=== PATIENT | female | born 1995 | race American Indian/Alaskan Native ===

== ENCOUNTER 2020-09-30 06:12 | Emergency (ER) | payer MEDICAID ==
--- NOTE | 2020-09-30 18:51 | PCM.SN.2 ---
- Free Text/Narrative Note: [employer] not working at time of visit earlier this AM see separate Word Document of visit pt left AMA ASSESS: recurrent RUQ pain, likely biliary colic PLAN: left AMA
== END 2020-09-30 07:10 | disposition left against medical advice (07) ==
LOC: FB.ED 06:12
DX: R10.11 Right upper quadrant pain (principal); Z86.16 Personal history of COVID-19
CPT/HCPCS: 99283

== ENCOUNTER 2021-02-19 13:41 | Emergency (ER) | payer MEDICAID ==
[2021-02-19] MEDS ORDERED: Morphine 4 MG/ML VIAL IVPUSH STA (13:44)
[2021-02-19] MEDS ORDERED: Ondansetron 4 MG/2 ML SDV IVPUSH STA (13:45)
[2021-02-19] MEDS ORDERED: HYDROmorphone 2 MG/ML SDV IVPUSH STA (13:45)
[2021-02-19] MEDS ORDERED: Iopamidol 755 Mg/ML 100 ML Bottle IV ONE (14:09)
[2021-02-19] MEDS ORDERED: LORazepam 2 MG/ML SDV IVPUSH STA (14:11)
[2021-02-19] MEDS ORDERED: Sodium Chloride 0.9% 1,000 ML IV SCH (14:30)
[2021-02-19] MEDS ORDERED: HYDROmorphone 2 MG/ML SDV IVPUSH ONE (15:26)
[2021-02-19] MEDS ORDERED: Piperacillin/Tazobactam 4.5 GM in Sodium Chloride 0.9% 100 ML IV STA (15:30)
--- NOTE | 2021-02-19 15:53 | CT ---
INDICATION: Severe right upper quadrant pain. CT CHEST, ABDOMEN AND PELVIS WITH CONTRAST: Spiral 3.75 mm axial sections were obtained through the chest, abdomen and pelvis with 100 mL [id number] at 2 mL/second, with sagittal, coronal and axial reconstructions in the chest and sagittal and coronal reconstructions in the abdomen, 02/19/21 - no comparisons. TOTAL EXAM DLP: 1227.38 mGy/cm. CT CHEST WITH CONTRAST: Examination of the chest with contrast - no comparisons. No mediastinal mass or significant mediastinal lymphadenopathy was noted. Heart appeared normal in size. An active infiltrate or effusion was not identified. A Ghon complex was noted on the left, compatible with previous granulomatous disease with calcification in a peripheral-perihilar posterior left lower lobe nodule and in adjacent hilar lymph nodes. No nodular masses were seen. No pneumothorax was seen. There is a minimal dextroconvex scoliosis at the upper middle thoracic spine. Vertebral body and disc heights were fairly well maintained with no significant- appearing degenerative changes. IMPRESSION: 1. Essentially normal CT chest with minimal scoliosis, with IV contrast. 2. Findings compatible with previous granulomatous disease. CT ABDOMEN AND PELVIS: Examination of the abdomen and pelvis with contrast was obtained and revealed a massively enlarged gallbladder, measuring approximately 17 cm in maximum diameter, with the smallest single line diameter of the gallbladder-AP diameter approximately 11 cm. While no definite calculi were seen, there is some suggestion of increased density material within the gallbladder near the neck of the gallbladder with one apparent gas bubble, which suggests the possibility of gas-forming organism infection in the gallbladder. However, the usual pericholecystic fluid and fat stranding around the gallbladder is not visualized, raising question of a very acute process. This should be correlated clinically. Additionally, there is noted dilatation of the proximal and distal common bile duct into the head of the pancreas. At the head of the pancreas, it measured approximately 6.4 mm, which is significantly enlarged in this age group. No definite etiology was noted for this dilatation. It should be correlated clinically. Additional examination, such as MRI-MRCP, may be warranted. Also, gallbladder ultrasound for the gallbladder findings may certainly be warranted for confirmation. The liver, adrenal glands, kidneys, spleen pancreas and retroperitoneum appeared essentially unremarkable with some minimal retroperitoneal lymphadenopathy, which is nonspecific. The appendix appeared normal, visualized on axial images 75 to 85, measuring approximately 6.5 mm maximally. No evidence of free air or bowel obstruction was identified. No ventral or inguinal hernia was seen. Urinary bladder was unremarkable. Ovaries showed evidence of follicles with follicular cyst changes on the left. No additional organomegaly, mass lesions or free fluid collections were identified in the abdomen or pelvis. Hypertrophic degenerative changes and disc disease are noted at L5-S1 and to a moderate extent also at L4-5 with posterior hypertrophic spurring at those levels off vertebral bodies. IMPRESSION: 1. Marked enlargement of the gallbladder with findings within the gallbladder raising question of very acute cholecystitis. This should be correlated clinically-gallbladder ultrasound recommended for confirmation. 2. Dilated common bile duct, etiology indeterminate-MRI may be helpful for further evaluation, as well as right upper quadrant ultrasound. 3. Degenerative hypertrophic changes and disc disease at L4 through S1. Report was called to Dr. Plasencia at 1520 hours, 02/19/21. [facility]
[2021-02-19] MEDS ORDERED: Ketorolac 30 MG/ML SDV IVPUSH STA (16:18)
--- NOTE | 2021-02-19 16:18 | EDM.PDOC ---
ED HPI GENERAL MEDICAL PROBLEM - General Chief Complaint: Abdominal Pain Stated Complaint: ABD PAIN Time Seen by Provider: 02/19/21 13:45 Source of Information: Reports: Patient, Family History Limitations: Reports: No Limitations - History of Present Illness INITIAL COMMENTS - FREE TEXT/NARRATIVE: Patient is a 25 YO F who presented to the ED because of sudden onset of severe R UQ and Epigastric pain at about 11:30 am. The pain is sharp and stabbing, 10/10 with associated nausea and vomiting x1. She has some chills but no fever. No changes in bowel movement of urinary symptoms. Right Upper Abdomen Pain Score (Numeric/FACES): 10 - Related Data Allergies Allergy/AdvReac Type Severity Reaction Status Date / Time No Known Allergies Allergy Verified 04/05/18 14:38 Home Meds: Home Meds Vits #93/Iron Fum/FA [ Formula Tablet] 1 tab PO DAILY 04/05/18 [History] Past Medical History - Past Health History Medical/Surgical History: Denies Medical/Surgical History - Infectious Disease History Infectious Disease History: Reports: None - Past Surgical History Musculoskeletal Surgical History: Reports: Other (See Below) Other Musculoskeletal Surgeries/Procedures:: R MENISCUS REPAIR Social & Family History - Family History Family Medical History: No Pertinent Family History - Caffeine Use Caffeine Use: Reports: Coffee, Soda Other Caffeine Use: 1 CAN QOD ED ROS GENERAL - Review of Systems Review Of Systems: See Below Constitutional: Reports: Chills HEENT: Reports: No Symptoms Respiratory: Reports: No Symptoms Cardiovascular: Reports: No Symptoms Endocrine: Reports: No Symptoms GI/Abdominal: Reports: Abdominal Pain, Nausea, Vomiting : Reports: No Symptoms Musculoskeletal: Reports: No Symptoms Skin: Reports: No Symptoms Neurological: Reports: No Symptoms Psychiatric: Reports: No Symptoms ED EXAM, GI/ABD - Physical Exam Exam: See Below Exam Limited By: No Limitations General Appearance: Alert, No Apparent Distress Ears: Normal External Exam, Normal Canal, Hearing Grossly Normal Nose: Normal Inspection, Normal Mucosa, No Blood Throat/Mouth: Normal Inspection, Normal Lips, Normal Teeth Head: Atraumatic, Normocephalic Neck: Normal Inspection, Supple, Non-Tender, Full Range of Motion Respiratory/Chest: No Respiratory Distress, Lungs Clear, Normal Breath Sounds, No Accessory Muscle Use, Chest Non-Tender Cardiovascular: Normal Peripheral Pulses, Regular Rate, Rhythm, No Edema, No Gallop, No JVD, No Murmur GI/Abdominal Exam: Normal Bowel Sounds, Soft, Other (RUQ and Epigastric ten derness) Back Exam: Normal Inspection, Full Range of Motion Extremities: Normal Inspection, Normal Range of Motion, Non-Tender, No Pedal Edema, Normal Capillary Refill Neurological: Alert, Oriented, CN II-XII Intact, Normal Cognition, Normal Gait, Normal Reflexes, No Motor/Sensory Deficits Psychiatric: Normal Affect Course - Vital Signs Text/Narrative:: Lab/Abd and Pelvis CT was reviewed and discussed with patient and her mom NS 1 L bolus Zofran 4 mg IV x1 Morphine 4 mg IV x1 Dilaudid 2 mg IV x1 Zosyn 4.75 gm IV x1 Toradol 30 mg iv x1 Vistaril 100 mg IM x1` Surgery consult with Dr Santamaria at [facility] who want patient to be transferred to [facility] Last Recorded V/S: Last Vital Signs Temp 36.4 C 02/19/21 13:45 Pulse 79 02/19/21 15:30 Resp 20 02/19/21 15:30 BP 122/88 02/19/21 15:30 Pulse Ox 99 02/19/21 15:30 - Orders/Labs/Meds Orders: Active Orders 24 hr Category Date Time Status Chest Pain Instruction [OM.PC] Stat Oth 02/19/21 13:48 Ordered EKG 12 Lead [EK] Routine Ther 02/19/21 13:40 Ordered Labs: Laboratory Tests 02/19/21 02/19/21 02/19/21 Range/Units 13:55 13:55 13:55 WBC 8.6 (3.0-10.3) x10-3/uL RBC 4.51 (3.60-5.20) x10(6)uL Hgb 12.8 (11.4-15.5) g/dL Hct 38.7 (34.2-48.2) % MCV 85.8 (76.7-100.5) fL MCH 28.4 (23.9-33.9) pg MCHC 33.1 (31.9-34.8) g/dL RDW 13.2 (12.3-16.5) % Plt Count 340 (151-488) x10(3)uL MPV 7.8 (7.1-12.4) fL Neut % (Auto) 68.5 (30.8-76.2) % Lymph % (Auto) 23.2 (18.4-52.1) % [place] % (Auto) 7.3 (4.4-15.7) % Eos % (Auto) 0.7 (0.6-8.1) % Baso % (Auto) 0.3 (0.2-1.5) % Neut # (Auto) 5.9 (1.5-6.3) x10-3/uL Lymph # (Auto) 2.0 (1.0-4.4) x10-3/uL [place] # (Auto) 0.6 (0.3-1.0) x10-3/uL Eos # (Auto) 0.1 (0.0-0.8) x10-3/uL Baso # (Auto) 0.0 (0.0-0.1) x10-3/uL Sodium 139 (135-145) mmol/L Potassium 3.6 (3.5-5.3) mmol/L Chloride 105 (100-110) mmol/L Carbon Dioxide 25 (21-32) mmol/L BUN 12 (7-18) mg/dL Creatinine 1.1 H (0.55-1.02) mg/dL Est Cr Clr Drug Dosing TNP Estimated GFR (MDRD) > 60 (>60) BUN/Creatinine Ratio 10.9 (9-20) Glucose 129 H (80-116) mg/dL Calcium 9.2 (8.6-10.2) mg/dL Total Bilirubin 0.5 (0.1-1.3) mg/dL AST 15 (5-25) IU/L ALT 17 (12-36) U/L Alkaline Phosphatase 104 (56-112) IU/L Troponin I (4.0-60.3) pg/mL Total Protein 8.5 H (6.0-8.0) g/dL Albumin 4.3 (3.5-5.2) g/dL Globulin 4.2 g/dL Albumin/Globulin Ratio 1.0 Amylase 52 (25-115) U/L Lipase 89 (73-393) U/L HCG, Quant < 5 L (<5) mIU/mL SARS-CoV-2 RNA (EDIL) (NEGATIVE) 02/19/21 02/19/21 Range/Units 13:55 16:32 WBC (3.0-10.3) x10-3/uL RBC (3.60-5.20) x10(6)uL Hgb (11.4-15.5) g/dL Hct (34.2-48.2) % MCV (76.7-100.5) fL MCH (23.9-33.9) pg MCHC (31.9-34.8) g/dL RDW (12.3-16.5) % Plt Count (151-488) x10(3)uL MPV (7.1-12.4) fL Neut % (Auto) (30.8-76.2) % Lymph % (Auto) (18.4-52.1) % [place] % (Auto) (4.4-15.7) % Eos % (Auto) (0.6-8.1) % Baso % (Auto) (0.2-1.5) % Neut # (Auto) (1.5-6.3) x10-3/uL Lymph # (Auto) (1.0-4.4) x10-3/uL [place] # (Auto) (0.3-1.0) x10-3/uL Eos # (Auto) (0.0-0.8) x10-3/uL Baso # (Auto) (0.0-0.1) x10-3/uL Sodium (135-145) mmol/L Potassium (3.5-5.3) mmol/L Chloride (100-110) mmol/L Carbon Dioxide (21-32) mmol/L BUN (7-18) mg/dL Creatinine (0.55-1.02) mg/dL Est Cr Clr Drug Dosing Estimated GFR (MDRD) (>60) BUN/Creatinine Ratio (9-20) Glucose (80-116) mg/dL Calcium (8.6-10.2) mg/dL Total Bilirubin (0.1-1.3) mg/dL AST (5-25) IU/L ALT (12-36) U/L Alkaline Phosphatase (56-112) IU/L Troponin I < 4.0 L (4.0-60.3) pg/mL Total Protein (6.0-8.0) g/dL Albumin (3.5-5.2) g/dL Globulin g/dL Albumin/Globulin Ratio Amylase (25-115) U/L Lipase (73-393) U/L HCG, Quant (<5) mIU/mL SARS-CoV-2 RNA (EDIL) Negative (NEGATIVE) Meds: Medications Discontinued Medications Generic Name Dose Route Start Last Admin Trade Name Freq PRN Reason Stop Dose Admin Hydromorphone HCl 1 mg 02/19/21 13:45 02/19/21 13:45 Hydromorphone 2 Mg/Ml Sdv IVPUSH 02/19/21 13:46 1 mg NOW STA Administration Hydromorphone HCl 1 mg 02/19/21 15:26 02/19/21 15:33 Hydromorphone 2 Mg/Ml Sdv IVPUSH 02/19/21 15:27 1 mg ONETIME ONE Administration Hydroxyzine HCl 100 mg 02/19/21 16:40 02/19/21 16:46 Hydroxyzine Hcl 50 Mg/Ml Sdv IM 02/19/21 16:41 100 mg NOW STA Administration Sodium Chloride 1,000 mls @ 999 mls/hr 02/19/21 14:30 02/19/21 14:30 Normal Saline IV 999 mls/hr ASDIRECTED BORIS Administration Piperacillin Sod/Tazobactam 100 mls @ 200 mls/hr 02/19/21 15:30 02/19/21 15:48 Sod 4.5 gm/ Sodium Chloride IV 02/19/21 15:59 200 mls/hr NOW STA Administration Iopamidol 100 ml 02/19/21 14:09 02/19/21 14:57 Iopamidol 755 Mg/Ml 100 Ml Bottle IV 02/19/21 14:10 100 ml . DIRECTED ONE Administration Ketorolac Tromethamine 30 mg 02/19/21 16:18 02/19/21 16:46 Ketorolac 30 Mg/Ml Sdv IVPUSH 02/19/21 16:19 30 mg NOW STA Administration Lorazepam 1 mg 02/19/21 14:11 02/19/21 14:11 Lorazepam 2 Mg/Ml Sdv IVPUSH 02/19/21 14:12 1 mg NOW STA Administration Morphine Sulfate 4 mg 02/19/21 13:44 02/19/21 13:45 Morphine 4 Mg/Ml Vial IVPUSH 02/19/21 13:45 4 mg NOW STA Administration Ondansetron HCl 4 mg 02/19/21 13:45 02/19/21 13:45 Ondansetron 4 Mg/2 Ml Sdv IVPUSH 02/19/21 13:46 4 mg NOW STA Administration Departure - Departure Time of Disposition: 16:00 Disposition: DC/Tfer to Acute Hospital 02 Condition: Good Clinical Impression: Cholecystitis - Discharge Information Referrals: PCP,None [Primary Care Provider] - Forms: ED Department Discharge Sepsis Event Note (ED) - Focused Exam Vital Signs: Vital Signs Temp Pulse Resp BP Pulse Ox 02/19/21 15:30 79 20 122/88 99 02/19/21 13:45 36.4 C 61 22 H 139/76 100 - My Orders Last 24 Hours: My Active Orders 02/19/21 13:40 EKG 12 Lead [EK] Routine 02/19/21 13:48 Chest Pain Instruction [OM.PC] Stat - Assessment/Plan Last 24 Hours: My Active Orders 02/19/21 13:40 EKG 12 Lead [EK] Routine 02/19/21 13:48 Chest Pain Instruction [OM.PC] Stat
[2021-02-19] MEDS ORDERED: hydrOXYzine HCl 50 MG/ML SDV IM STA (16:40)
--- NOTE | 2021-02-19 23:42 | PCM.EKG ---
#1 Interpretation EKG Date: 02/19/21 Time: 13:42 Rhythm: NSR Rate (Beats/Min): 60 [place]: Normal P-Wave: Present QRS: Normal ST-T: Normal QT: Normal [place]/PQ Interval: 142 Comparison: NA - No Prior EKG EKG Interpretation Comments: NSR
== END 2021-02-19 17:55 ==
LOC: FB.ED 13:41
DX: K81.9 Cholecystitis, unspecified (principal); Z20.822 Contact with and (suspected) exposure to COVID-19
CPT/HCPCS: 36415; 71260; 74177; 80053; 82150; 83690; 84484; 84702; 85025; 87635; 93005; 96365; 96372; 96375; 96376; 99285; J1170; J1885; J2060; J2270; J2405; J2543; J3410; J7030; Q9967; U0002